=== PATIENT | male | born 2000 | race Caucasian/White ===

== ENCOUNTER 2018-04-11 11:52 | Emergency (ER) | payer OTHER ==
[2018-04-11 13:25] VITALS: BP 104/53
--- NOTE | 2018-04-11 15:11 | ED ---
Head Injury - HPI Summary HPI Summary: Patient's 17-year-old male sent from [address] [place] [address] urgent care with a head injury which occurred 3 days prior. He states he was playing soccer when he fell forward and hit his head. Since that time he has been endorsing nausea with one episode vomiting as well as feeling fatigued. Denies any confusion, memory loss or headache. He states it is becoming difficult to do his homework, but symptoms have been improving over the past 3 days. Sleeping, eating and drinking well. He is otherwise healthy and takes no medications. 2 previous concussions several years prior. Denies any EtOH or drug use. Denies LOC. - History Of Current Complaint Chief Complaint: EDHeadInjury Stated Complaint: HEAD INJURY Time Seen by Provider: 04/11/18 12:16 Hx Obtained From: Patient Mechanism Of Injury: Direct Blow Onset/Duration: Started Days Ago Onset of Pain: Hours Severity Currently: Mild Severity Initially: Mild Pain Intensity: 4 Pain Scale Used: 0-10 Numeric Location of Head Injury: Diffuse Location: Diffuse Alleviating Factor(s): Rest - Allergies/Home Medications Allergies/Adverse Reactions: Allergies Allergy/AdvReac Type Severity Reaction Status Date / Time No Known Allergies Allergy Verified 04/11/18 12:11 PMH/Surg Hx/FS Hx/Imm Hx Previously Healthy: Yes - Immunization History Hx Pertussis Vaccination: No Immunizations Up to Date: Yes Infectious Disease History: No Infectious Disease History: Denies: Traveled Outside the [place] in Last 30 Days - Social History Occupation: Unemployed Lives: With Family Alcohol Use: Weekly Hx Substance Use: No Substance Use Type: Reports: None Hx Tobacco Use: No Smoking Status (MU): Never Smoked Tobacco Review of Systems Positive: Fatigue. Negative: Fever, Chills, Skin Diaphoresis Negative: Blurred Vision, Diplopia, Erythema Negative: Palpitations, Chest Pain Negative: Shortness Of Breath, Cough Genitourinary: Negative Positive: no symptoms reported, see HPI Negative: Headache, Weakness Psychological: Normal All Other Systems Reviewed And Are Negative: Yes Physical Exam Triage Information Reviewed: Yes Vital Signs On Initial Exam: Initial Vitals Temp Pulse Resp BP Pulse Ox 98.6 F 87 18 102/56 98 04/11/18 12:08 04/11/18 12:08 04/11/18 12:08 04/11/18 12:08 04/11/18 12:08 Vital Signs Reviewed: Yes Appearance: Positive: Well-Appearing, Well-Nourished Skin: Positive: Warm, Skin Color Reflects Adequate Perfusion Head/Face: Positive: Normal Head/Face Inspection Eyes: Positive: EOMI, BRITTANY, Conjunctiva Clear Neck: Positive: Supple, No Lymphadenopathy Respiratory/Lung Sounds: Positive: Breath Sounds Present Cardiovascular: Positive: RRR, Pulses are Symmetrical in both Upper and Lower Extremities Musculoskeletal: Positive: Normal, Strength/ROM Intact Neurological: Positive: Sensory/Motor Intact, Alert, Oriented to Person Place, Time, CN Intact II-III, Facial Symmetry, Speech Normal Psychiatric: Positive: Normal, Affect/Mood Appropriate AVPU Assessment: Alert - Octavia Coma Scale Best Eye Response: 4 - Spontaneous Best Motor Response: 6 - Obeys Commands Best Verbal Response: 5 - Oriented Coma Scale Total: 15 Diagnostics - Vital Signs Vital Signs Temp Pulse Resp BP Pulse Ox 04/11/18 13:00 99.1 F 76 18 104/53 100 04/11/18 12:08 98.6 F 87 18 102/56 98 - Laboratory Lab Statement: Any lab studies that have been ordered have been reviewed, and results considered in the medical decision making process. Head Injury Course/Dx Course Of Treatment: Patient's evaluated for head injury which occurred 3 days prior. He states symptoms have been improving however he is fatigued. Endorses one episode of emesis 2 days ago. Neuro exam WNL. Patient alert and oriented, acting appropriately. Discussed with patient concussion as a clinical diagnosis and due to his symptoms he may have a mild concussion and I have encouraged progress. On physical examination, there is no nystagmus. Patient will be discharged with head injury diagnosis with possible mild concussion. Given brain rest instructions and follow up with his PCP prior to returning to any sports. - Diagnoses Differential Diagnosis/HQI/PQRI: Concussion Without LOC, Contusion Provider Diagnoses: Head injury Discharge - Sign-Out/Discharge Documenting (check all that apply): Patient Departure - Discharge Plan Condition: Stable Disposition: HOME Patient Education Materials: Concussion (ED) Forms: *School Release Referrals: [facility] [Primary Care Provider] - Additional Instructions: Please return to the ED if he develop any worsening or changing symptoms - Billing Disposition and Condition Condition: STABLE Disposition: Home
== END 2018-04-11 13:00 | disposition home or self-care (01) ==
LOC: ED 11:52
DX: S09.90XA Unspecified injury of head, initial encounter (principal); R53.83 Other fatigue; W19.XXXA Unspecified fall, initial encounter; Y92.9 Unspecified place or not applicable
CPT/HCPCS: 99281